=== PATIENT | female | born 1940 | race Caucasian/White ===

== ENCOUNTER 2018-03-20 13:42 | Outpatient (CLI) | payer MEDICARE ==
--- NOTE | 2018-03-20 14:57 | RAD ---
RIGHT KNEE 3 VIEWS: HISTORY: Fall. Right knee injury. FINDINGS: Near-complete loss of joint space at the medial compartment. Moderate tricompartmental osteophytosis . No acute fracture, dislocation, or fluid distention in the suprapatellar bursa. Phleboliths proje ct anterior to the knee. IMPRESSION: Osteoarthritis. No acute osseous abnormalities are demonstrated. POS: [facility]
== END 2018-03-20 13:43 | disposition home or self-care (01) ==
LOC: SCSRAD 13:42
PROVIDERS: ATTEND Family Medicine
DX: Z04.3 Encounter for examination and observation following other accident (principal); M17.11 Unilateral primary osteoarthritis, right knee; W19.XXXA Unspecified fall, initial encounter

== ENCOUNTER 2018-10-08 08:48 | Outpatient (CLI) | payer MEDICARE ==
--- NOTE | 2018-10-08 09:37 | BD ---
DEXA BONE DENSITY: Date: 10/08/18 HISTORY: 78-year-old female. Postmenopausal screening. FINDINGS: Lumbar Spine: BMD (g/cm2) L1 0.772 T-Score: -2.0 Z-Score: 0.2 L2 0.889 T-Score: -1.3 Z-Score: 1.2 L3 0.889 T-Score: -1.8 Z-Score: 0.8 L4 0.871 T-Score: -1.7 Z-Score: 0.9 L1-L4 0.858 T-Score: -1.7 Z-Score: 0.8 Femoral Neck: 0.633 T-Score: -1.9 Z-Score: 0.2 Total Femur: 0.817 T-Score: -1.0 Z-Score: 0.8 IMPRESSION: Lumbar Spine: WHO classification is osteopenia; fracture risk is increased. Femoral Neck: WHO classification is osteopenia. 10 year fracture risk for major osteoporotic fracture is 13%, hip fracture is 3.1%. POS: [facility]
== END 2018-10-08 08:49 | disposition home or self-care (01) ==
LOC: BICMAMMO 08:48
PROVIDERS: ATTEND Family Medicine
DX: N95.9 Unspecified menopausal and perimenopausal disorder (principal)
CPT/HCPCS: 77080

== ENCOUNTER 2019-11-15 10:09 | Outpatient (CLI) | payer MEDICARE ==
--- NOTE | 2019-11-15 12:26 | MRI ---
MRI LUMBAR SPINE WITHOUT CONTRAST: INDICATION: Lumbar stenosis. Neurogenic claudication. COMPARISON: Comparison is made to MRI of lumbar spine dated 11/11/2016. That exam revealed an extruded disk on the left at L4-5 with inferior migration and sequestration of a disk fragment along the posterior margin of the L5 vertebra. FINDINGS: The lumbar vertebrae maintain height and alignment with no significant change in appearance from prio r study. Degenerative osteophytes from the lumbar vertebrae are again noted. Degenerative disk duarte ges at multiple levels with loss of disk space at L2-3, L3-4, and L4-5 appear stable in appearance. Findings at each level are noted. At L1-2, mild disk bulge is similar to the prior exam. There is mild facet hypertrophy. No signific ant central canal or foraminal stenosis. At L2-3, mild diffuse disk bulge. Mild facet hypertrophy. Mild central canal stenosis which appears stable. At L3-4, a broad-based disk bulge with annular fissure. There is posterior facet hypertrophy with po sterior epidural fat. These changes compress the thecal sac resulting in mild to moderate central ca nal stenosis slightly more prominent than on the prior study. Mild bilateral foraminal narrowing due to facet hypertrophy. At L4-5, broad-based disk bulge. Asymmetric bulge/protrusion on the left again noted with foraminal encroachment. The extruded disk fragment with inferior migration on the left seen on the prior study is not apparent today and this disk fragment has apparently been resorbed. There is facet and ligam entous hypertrophy with mild central canal stenosis. There is rather severe left foraminal stenosis. Right foramina appears patent. L5-S1: Mild disk bulge is similar to the prior exam. No significant central canal stenosis. There is mild foraminal narrowing bilaterally due to facet hypertrophy without nerve root impingement. IMPRESSION: 1. The extruded disk fragment with inferior migration on the left at L4-5 noted on the prior exam sh ows significant improvement. There continues to be asymmetric disk bulge to the left in that the lef t foramina was severe left foraminal stenosis at L4-5 and mild central canal stenosis as described ab ove. 2. Findings at the other levels similar to the prior study as described above. Mild increased centr al canal stenosis at L3-4 is noted as described. POS: [facility]
== END 2019-11-15 10:10 | disposition home or self-care (01) ==
LOC: BICMRI 10:09
PROVIDERS: ATTEND Anesthesiology Pain Medicine
DX: M48.062 Spinal stenosis, lumbar region with neurogenic claudication (principal); M51.26 Other intervertebral disc displacement, lumbar region
CPT/HCPCS: 72148

== ENCOUNTER 2022-09-09 13:41 | Outpatient (CLI) | payer MEDICARE | END 2022-09-09 13:42 | disposition home or self-care (01) | LOC: SCSRAD 13:41 | PROVIDERS: ATTEND Family Medicine | DX: W19.XXXA Unspecified fall, initial encounter (principal) ==

== ENCOUNTER 2022-10-15 11:14 | Outpatient (CLI) | payer MEDICARE | END 2022-10-15 11:15 | disposition home or self-care (01) | LOC: SCSRAD 11:14 | PROVIDERS: ATTEND Family Medicine | DX: M79.604 Pain in right leg (principal); M25.851 Other specified joint disorders, right hip ==

== ENCOUNTER 2022-10-24 10:45 | Outpatient (CLI) | payer MEDICARE | END 2022-10-24 10:46 | disposition home or self-care (01) | LOC: SCSMRI 10:45 | PROVIDERS: ATTEND Anesthesiology Pain Medicine | DX: M48.062 Spinal stenosis, lumbar region with neurogenic claudication (principal); M47.815 Spondylosis without myelopathy or radiculopathy, thoracolumbar region; M47.816 Spondylosis without myelopathy or radiculopathy, lumbar region; M47.817 Spondylosis without myelopathy or radiculopathy, lumbosacral region; M51.26 Other intervertebral disc displacement, lumbar region; M48.07 Spinal stenosis, lumbosacral region | CPT/HCPCS: 72148 ==